=== PATIENT | female | born 1935 | race Caucasian/White ===

== ENCOUNTER 2017-07-27 12:27 | Emergency (ER) | payer MEDICARE, OTHER ==
[~2017-07-27] VITALS: Ht 165.1 cm; Wt 60.0 kg
[~2017-07-27 12:27] MED LIST: ACCUPRIL10 MG INH; AUGMENTIN500TAB PO; CORTISPORIN OTI10 M2 AU; FLUARIX QUADRIV1 INJ IM; FLUTICASONE50 MCG INH; GNP ALLERGY-D12 HOUR PO; LISINOP/HCTZ1 TAB PO; SIMVASTATIN10 MG PO; TAM75CAP PO; TESSALON PER100 MG PO; TESSALON PERLE100 MG PO; TRAMADOL HCL E100 M1 PO; TRAMADOL HCL100 MG PO; TRAMADOL HCL50 MG PO; TRAZODONE100 MG PO; TRAZODONE50 MG PO; ULTRAM50 M1 PO; VALACYCLOVIR H500 MG PO; ZPAK PO
[2017-07-27 12:58] LABS: URINE BILIRUBIN - DIPSTICK NEGATIVE (NEGATIVE); URINE BLOOD DIPSTICK NEGATIVE (NEGATIVE); URINE COLOR YELLOW; URINE GLUCOSE - DIPSTICK NEGATIVE (NEGATIVE); URINE KETONE NEGATIVE (NEGATIVE); URINE LEUK ESTERASE NEGATIVE (NEGATIVE); URINE NITRITE - DIPSTICK NEGATIVE (Negative); URINE PROTEIN - DIPSTICK NEGATIVE (NEG-TRACE); URINE SPECIFIC GRAVITY <=1.005; URINE UROBILINOGEN - DIPSTICK 0.2 E.U./dL (0.2)
[2017-07-27 12:59] LABS: URINE CLARITY CLEAR
[2017-07-27] MEDS ORDERED: TRAMADOL HCL50 MG PO (13:41)
[2017-07-27] MEDS ORDERED: LISINOP/HCTZ1 TAB PO (13:42)
[2017-07-27] MEDS ORDERED: DIAZEPAM2 M1 PO (13:42)
[2017-07-27 13:45] VITALS: BP 166/84
[2017-07-27] MEDS ORDERED: DITROPAN XL5 MG PO ×2 (14:21→14:22)
== END 2017-07-27 13:45 | disposition home or self-care (01) ==
LOC: ED 12:27
PROVIDERS: Emergency Medicine
DX: R35.0 Frequency of micturition (principal); N39.41 Urge incontinence; I10 Essential (primary) hypertension; Z98.890 Other specified postprocedural states

== ENCOUNTER → 2018-10-24 | Outpatient (REF) | payer MEDICARE, OTHER ==
[~2018-10-24] MED LIST changes: +DIAZEPAM2 M1 PO; +DITROPAN XL5 MG PO
[2018-10-24 10:08] LABS: HEMATOCRIT 35.9 % (37.0-47.0); HEMOGLOBIN 11.5 g/dl (12.0-16.0); IMMATURE GRANULOCYTES 0.2 % (0.0-5.0); MEAN CELL VOLUME 87.1 fL CALC (80.0-100.0); MEAN CORPUSCULAR HGB 27.9 pG CALC (26.0-32.0); NEUT# 3.2 thou/uL (2.00-7.15); RED BLOOD COUNT 4.12 mill/uL (4.20-5.60); RED CELL DISTRI WIDTH 15.8 % (11.5-15.5)
[2018-10-24 10:09] LABS: URINE BILIRUBIN - DIPSTICK NEGATIVE (NEGATIVE); URINE BLOOD DIPSTICK NEGATIVE (NEGATIVE); URINE COLOR YELLOW; URINE GLUCOSE - DIPSTICK NEGATIVE (NEGATIVE); URINE KETONE NEGATIVE (NEGATIVE); URINE LEUK ESTERASE NEGATIVE (NEGATIVE); URINE NITRITE - DIPSTICK NEGATIVE (Negative); URINE PROTEIN - DIPSTICK NEGATIVE (NEG-TRACE); URINE SPECIFIC GRAVITY 1.025; URINE UROBILINOGEN - DIPSTICK 0.2 E.U./dL (0.2)
[2018-10-24 10:28] LABS: ACT PARTIAL THROMBO TIME 26.2 SECONDS (20.0-32.5)
[2018-10-24 10:34] LABS: ALBUMIN 4.3 g/dL (3.2-5.0); ALKALINE PHOSPHATASE 68 u/l (38-126); ANION GAP 14 (6-22 (CALC)); BILIRUBIN, TOTAL 0.4 mg/dL (0.0-1.4); BUN 28 mg/dL (8-23); BUN/CREATININE RATIO 29 (12-20 (CALC)); CARBON DIOXIDE 30 mmol/l (22-30); CHLORIDE 103 mmol/l (95-108); GFR 53 ML/MIN (>=60 (CALC)); GFR FOR AFR.AMER. > 60 ML/MIN (>=60 (CALC)); POTASSIUM 4.3 mmol/l (3.5-5.1); SGOT/AST 17 u/l (9-36); SODIUM 142 mmol/l (137-146); TOTAL PROTEIN 6.8 g/dL (6.3-8.2)
== END | disposition home or self-care (01) ==
LOC: LAB 09:23
PROVIDERS: ATTEND Internal Medicine
DX: Z01.818 Encounter for other preprocedural examination (principal); Z51.81 Encounter for therapeutic drug level monitoring; I07.1 Rheumatic tricuspid insufficiency

== ENCOUNTER 2021-01-22 22:09 | Emergency (ER) | payer MEDICARE ==
[~2021-01-22] VITALS: Ht 165.1 cm; Wt 68.0 kg
[2021-01-22] MEDS ORDERED: TRAZODONE50 MG PO (22:50)
[2021-01-22 23:11] LABS: HEMATOCRIT 38.6 % (37.0-47.0); IMMATURE GRANULOCYTES 0.4 % (0.0-5.0); MEAN CELL VOLUME 84.8 fL CALC (80.0-100.0); MEAN CORPUSCULAR HGB 26.4 pG CALC (26.0-32.0); MEAN CORPUSCULAR HGB CONC 31.1 g/dL CAL (32.0-36.0); NEUT# 8.19 thou/uL (2.00-7.15); RED BLOOD COUNT 4.55 mill/uL (4.20-5.60)
[2021-01-22 23:36] LABS: ALBUMIN 4.1 g/dL (3.2-5.0); ALKALINE PHOSPHATASE 97 u/l (38-126); ANION GAP 11 (6-22 (CALC)); BILIRUBIN, TOTAL 0.2 mg/dL (0.0-1.4); BUN 33 mg/dL (8-23); BUN/CREATININE RATIO 34 (12-20 (CALC)); CARBON DIOXIDE 25 mmol/l (22-30); CHLORIDE 105 mmol/l (95-108); CREATININE 0.9 mg/dL (0.5-1.0); GFR 60 ML/MIN (>=60 (CALC)); GFR FOR AFR.AMER. > 60 ML/MIN (>=60 (CALC)); LIPASE 48 u/l (23-300); POTASSIUM 3.9 mmol/l (3.5-5.1); SGOT/AST 21 u/l (9-36); SODIUM 137 mmol/l (137-146); TOTAL PROTEIN 7.1 g/dL (6.3-8.2)
[2021-01-23 00:43] LABS: URINE BILIRUBIN - DIPSTICK NEGATIVE (NEGATIVE); URINE BLOOD DIPSTICK LARGE (NEGATIVE); URINE COLOR YELLOW; URINE GLUCOSE - DIPSTICK NEGATIVE (NEGATIVE); URINE KETONE NEGATIVE (NEGATIVE); URINE PROTEIN - DIPSTICK NEGATIVE (NEG-TRACE); URINE UROBILINOGEN - DIPSTICK 0.2 E.U./dL (0.2)
[2021-01-23 00:44] LABS: URINE LEUK ESTERASE NEGATIVE (NEGATIVE); URINE NITRITE - DIPSTICK NEGATIVE (Negative)
[2021-01-23 00:46] LABS: URINE RBC 25-50 RBC/hpf (0-5)
[2021-01-23 00:47] LABS: URINE BACTERIA FEW hpf; URINE EPITHELIAL CELLS FEW EPI/hpf (0-FEW)
[2021-01-23 05:31] VITALS: BP 146/68
[2021-01-23] MEDS ORDERED: CIPROFLOXACN500 MG PO (09:24)
[2021-01-23] MEDS ORDERED: ULTRAM50 M1 PO (09:24)
[2021-04-06] MEDS ORDERED: DIAZEPAM2 MG PO (09:21)
[2021-04-06] MEDS ORDERED: OXYBUTININ PO (09:21)
[2021-04-18] MEDS ORDERED: TRAZODONE50 MG PO (13:33)
[2021-04-18] MEDS ORDERED: ZYRTEC10 MG PO (13:34)
[2021-04-18] MEDS ORDERED: POWER C (13:35)
[2021-04-18] MEDS ORDERED: MULTIVITAMI9 PO (13:36)
[2021-04-18] MEDS ORDERED: D31000 UNIT PO (13:37)
[2021-04-18] MEDS ORDERED: TURMERI1 PO (13:37)
[2021-04-18] MEDS ORDERED: B COMPLE2 PO (13:37)
[2021-04-18] MEDS ORDERED: IS-ZC 50 50 MG1 TAB (13:38)
[2021-04-18] MEDS ORDERED: MAGNESIUM 250 M1 TAB (13:38)
[2021-04-18] MEDS ORDERED: L-LYSINE500 M2 PO (13:39)
[2021-04-18] MEDS ORDERED: MUCINEX600 MG PO (13:39)
== END 2021-01-23 09:34 | disposition home or self-care (01) ==
LOC: ED 22:09
PROVIDERS: Emergency Medicine
DX: N20.1 Calculus of ureter (principal); N39.0 Urinary tract infection, site not specified

== ENCOUNTER 2021-04-19 08:42 | Day surgery (SDC) | payer MEDICARE ==
[~2021-04-19 08:42] MED LIST changes: +B COMPLE2 PO; +CIPROFLOXACN500 MG PO; +D31000 UNIT PO; +DIAZEPAM2 MG PO; +IS-ZC 50 50 MG1 TAB; +L-LYSINE500 M2 PO; +MAGNESIUM 250 M1 TAB; +MUCINEX600 MG PO; +MULTIVITAMI9 PO; +OXYBUTININ PO; +POWER C; +TURMERI1 PO; +ZYRTEC10 MG PO
[2021-04-19 10:26] VITALS: BP 117/55
--- NOTE | 2021-04-22 14:04 | NUR ---
PER PHYSICIAN, PATIENT AWARE OF BIOPSY RESULTS FROM PREVIOUS PROCEDURE. PATIENT VOICED UNDERSTANDING OF RESULTS.
== END 2021-04-19 11:15 | disposition home or self-care (01) ==
LOC: ENDO 08:42 → ORM 11:00 → ENDO 11:00
PROVIDERS: ATTEND Surgery
PROC: 0DB78ZX Excision of Stomach, Pylorus, Via Natural or Artificial Opening Endoscopic, Diagnostic (ICD-10-PCS; principal; 2021-04-19)
DX: K29.70 Gastritis, unspecified, without bleeding (principal); K31.7 Polyp of stomach and duodenum; I10 Essential (primary) hypertension